=== PATIENT | female | born 1945 ===

== ENCOUNTER 2016-12-03 14:00 | Emergency (ER) | payer MEDICARE, MEDICAID ==
[2016-12-03 14:20] VITALS: PULSE 91
[2016-12-03 14:39] VITALS: BMI 25.6
--- NOTE | 2016-12-03 15:00 | C.PDOC ---
History Of Present Illness 71-year-old female BIBA for evaluatin of near syncope. Patient states she went to the dentist this morning and had local anesthetic injected bilaterally. Patient then went out to eat afterward (had not eaten prior to procedure), and she developed light headedness and felt like she was going to pass out. Patient did not have a full syncope. She denies chest pain, shortness of breath, palpitations, visual changes, facial droop, slurred speech, headache, extremity weakness, sensory changes. Time Seen by Provider: 12/03/16 14:18 Chief Complaint (Nursing): Syncope History Per: Patient, EMS History/Exam Limitations: no limitations Current Symptoms Are (Timing): Better Severity: Mild Past Medical History Reviewed: Historical Data, Nursing Documentation, Vital Signs Vital Signs: Last Vital Signs Temp 98.8 F 12/03/16 18:59 Pulse 91 H 12/03/16 18:59 Resp 16 12/03/16 18:59 BP 119/69 12/03/16 18:59 Pulse Ox 95 12/03/16 18:59 - Medical History PMH: HTN, Kidney Stones, Chronic Kidney Disease Family History: States: No Known Family Hx - Social History Hx Alcohol Use: No Hx Substance Use: No - Immunization History Hx Tetanus Toxoid Vaccination: No Hx Influenza Vaccination: No Hx Pneumococcal Vaccination: No Review Of Systems Except As Marked, All Systems Reviewed And Found Negative. Constitutional: Negative for: Fever, Chills Cardiovascular: Positive for: Light Headedness. Negative for: Chest Pain, Palpitations Respiratory: Negative for: Cough, Shortness of Breath Gastrointestinal: Negative for: Nausea, Vomiting Musculoskeletal: Negative for: Neck Pain, Back Pain Skin: Negative for: Rash Neurological: Negative for: Weakness, Numbness, Incoordination, Change in Speech , Confusion, Seizures, Altered Mental Status, Headache, Dizziness Physical Exam - Physical Exam Appears: Well, Non-toxic, No Acute Distress Skin: Warm, Dry, No Rash Head: Atraumatic, Normacephalic Eye(s): bilateral: Normal Inspection, PERRL, EOMI Oral Mucosa: Moist Neck: Normal, Normal ROM Cardiovascular: Rhythm Regular Respiratory: Normal Breath Sounds, No Rales, No Rhonchi, No Wheezing Extremity: Normal ROM, No Pedal Edema, No Calf Tenderness Neurological/Psych: Oriented x3, Normal Speech, Normal Cognition, Normal Cranial Nerves, No Cerebellar Signs, Normal Motor, Normal Sensation Gait: Steady ED Course And Treatment - Laboratory Results Result Diagrams: 12/03/16 16:12 12/03/16 16:12 ECG: Interpreted By Me, Viewed By Me (NSR 91 bpm, left axis deviation, no acute ST/T wave changes) ECG Interpretation: Normal Interpretation Of ECG: Normal axis. Rate From EC (bpm ) O2 Sat by Pulse Oximetry: 97 (RA) Pulse Ox Interpretation: Normal - Radiology CXR: Viewed By Me, Read By Radiologist CXR Interpretation: Yes: No Acute Disease - CT Scan/US CT HEAD Other Rad Studies (CT/US): Read By Radiologist, Radiology Report Reviewed CT/US Interpretation: Accession No. : [id number]. Patient Name / ID : FELIX DC / [id number]. Exam Date : 12/03/2016 15:36:14 ( Approved ). Study Comment : Sex / Age : F / [id number]. Creator : Lexa Stokes. Dictator : Lexa Stokes. Airline Reservation Agent : Software Performance Engineer : Lexa Stokes. Approver2 : Report Date : 12/03/2016 15:50:08. My Comment : . PROCEDURE: CT HEAD WITHOUT CONTRAST. HISTORY: SYNCOPE. COMPARISON: Comparison is made to the previous study dated 09/24/2012. TECHNIQUE: Axial computed tomography images were obtained through the head/brain without intravenous contrast. Radiation dose: Total exam DLP = 869.88 mGy-cm. This CT exam was performed using one or more of the following dose reduction techniques: Automated exposure control, adjustment of the mA and/or kV according to patient size, and/or use of iterative reconstruction technique. FINDINGS: HEMORRHAGE: No intracranial hemorrhage. BRAIN: No mass effect or edema. Mild atrophy is again noted. VENTRICLES: Unremarkable. No hydrocephalus. CALVARIUM: Unremarkable. PARANASAL SINUSES: Unremarkable as visualized. No significant inflammatory changes. MASTOID AIR CELLS: Unremarkable as visualized. No inflammatory changes. OTHER FINDINGS: None. IMPRESSION: O evidence of acute intracranial hemorrhage intracranial collection mass effect or midline shift. No significant interval change since the previous exam noted. Progress Note: Blood work, CT Head, EKG, chest x-ray and UA ordered and reviewed. Reevaluation Time: 18:20 Reassessment Condition: Improved (On reassessment, patient is resting comfortably and states she feels better. She is ambulating normally in the ED, and is well appearing with normal vitals. Studies were WNL, blood work shows mild elevation in Bun/Cr, which patient was made aware of. She was instructed to drink plenty of fluids, ear regularly, and follow up with PMD/clinic in 1-2 days. She understands she should return to ED if symptoms worsen/return.) Disposition Counseled Patient/Family Regarding: Studies Performed, Diagnosis, Need For Followup - Disposition Referrals: Hubert Finley MD [Medical Doctor] - Disposition: HOME/ ROUTINE Disposition Time: 18:20 Condition: STABLE Additional Instructions: SEGUIMIENTO CON TOMPKINS MDICO EN 1-2 BLACK BEBER MUCHO LQUIDO DEVUELVA A LA SHADE DE EMERGENCIA SI LOS SNTOMAS EMPEORARAN Instructions: Near Syncope (ED) Print Language: BAHRAINI - POA Present On Arrival: None - Clinical Impression Clinical Impression: Near syncope, Mild renal insufficiency - Scribe Statement The provider has reviewed the documentation as recorded by the Tayloribsathish Gottlieb All medical record entries made by the Scribe were at my direction and personally dictated by me. I have reviewed the chart and agree that the record accurately reflects my personal performance of the history, physical exam, medical decision making, and the department course for this patient. I have also personally directed, reviewed, and agree with the discharge instructions and disposition.
--- NOTE | 2016-12-03 15:51 | CT ---
PROCEDURE: CT HEAD WITHOUT CONTRAST. HISTORY: SYNCOPE COMPARISON: Comparison is made to the previous study dated 09/24/2012 TECHNIQUE: Axial computed tomography images were obtained through the head/brain without intravenous contrast. Radiation dose: Total exam DLP = 869.88 mGy-cm. This CT exam was performed using one or more of the following dose reduction techniques: Automated exposure control, adjustment of the mA and/or kV according to patient size, and/or use of iterative reconstruction technique. FINDINGS: HEMORRHAGE: No intracranial hemorrhage. BRAIN: No mass effect or edema. Mild atrophy is again noted. VENTRICLES: Unremarkable. No hydrocephalus. CALVARIUM: Unremarkable. PARANASAL SINUSES: Unremarkable as visualized. No significant inflammatory changes. MASTOID AIR CELLS: Unremarkable as visualized. No inflammatory changes. OTHER FINDINGS: None. IMPRESSION: O evidence of acute intracranial hemorrhage intracranial collection mass effect or midline shift. No significant interval change since the previous exam noted.
--- NOTE | 2016-12-03 16:02 | RAD ---
PROCEDURE: CHEST RADIOGRAPH, 1 VIEW HISTORY: SOB COMPARISON: Comparison is made to the previous study dated 09/24/2012 FINDINGS: LUNGS: No significant interval change in the lungs since the previous exam. PLEURA: No pneumothorax or pleural fluid seen. CARDIOVASCULAR: Normal. OSSEOUS STRUCTURES: No significant abnormalities. VISUALIZED UPPER ABDOMEN: Normal. OTHER FINDINGS: None. IMPRESSION: No evidence of new infiltrate or consolidation in the lungs.
[2016-12-03 16:21] LABS: MONO # 0.5 K/uL (0.0-0.8); MONO % 4.5 % (0.0-10.0)
[2016-12-03 16:26] LABS: BASO # 0.1 K/uL (0.0-0.2); BASO % 0.4 % (0.0-2.0); HEMATOCRIT 37.7 % (34.0-47.0); LYMPH % 8.1 % (20.0-40.0); MEAN CELL VOLUME 92.3 fL (81.0-99.0); MEAN CORPUSCULAR HGB CONC 32.5 g/dL (33.0-37.0); MEAN PLATELET VOLUME 8.3 fL (7.2-11.7); PLATELET COUNT 289 K/uL (130-400); RED CELL DISTRIBUTION WIDTH 12.3 % (11.5-14.5); WHITE BLOOD COUNT 12.1 K/uL (4.8-10.8)
[2016-12-03 16:50] LABS: RBC URINE 7 /hpf (0-3); URINE BILIRUBIN NEGATIVE (NEGATIVE); URINE BLOOD 1+ (NEGATIVE); URINE COLOR Straw (YELLOW); URINE GLUCOSE (UA) NORMAL (Normal); URINE KETONE NEGATIVE (NEGATIVE); URINE LEUKOCYTE ESTERASE NEG Leu/uL (Negative); URINE PROTEIN NEGATIVE (NEGATIVE); URINE UROBILINOGEN NORMAL mg/dL (0.2-1.0); WBC URINE 2 /hpf (0-5)
[2016-12-03 17:13] LABS: CHLORIDE 101 mmol/L (98-107)
[2016-12-03 17:14] LABS: SODIUM 137 mmol/L (132-148)
[2016-12-03 17:16] LABS: ALKALINE PHOSPHATASE 86 U/L (38-126); AST/SGOT 26 U/L (14-36); BILIRUBIN,TOTAL 0.8 mg/dL (0.2-1.3); BLOOD UREA NITROGEN 22 mg/dL (7-17); CARBON DIOXIDE 26 mmol/L (22-30); GFR AFRICAN-AMERICAN 45; TOTAL PROTEIN 8.4 g/dL (6.3-8.3)
[2016-12-03 17:17] LABS: ALT/SGPT 17 U/L (9-52); CALCIUM 8.8 mg/dl (8.6-10.4); GLUCOSE,RANDOM 114 mg/dL (65-105)
[2016-12-03 18:15] LABS: NEUTROPHIL 83 % (50-75); PLATELET CLUMPS PRESENT; TOTAL CELLS COUNTED 100
[2016-12-03 19:01] VITALS: BP 119/69; RESP 16; TEMP 98.8
--- NOTE | 2016-12-07 19:07 | CARD ---
APPROVED REPORT EKG Measurement Heart [id number] NM [id number] <Conclusion> Normal sinus rhythm Possible Left atrial enlargement Borderline ECG
[2016-12-11 08:56] VITALS: O2SAT 97
== END 2016-12-03 19:01 | disposition home or self-care (01) ==
LOC: C.ER 14:00
DX: R55 Syncope and collapse (principal); N28.9 Disorder of kidney and ureter, unspecified